=== PATIENT | male | born 1985 | race Two or more races ===

== ENCOUNTER 2022-12-13 09:07 | Emergency (ER) | payer OTHER ==
[2022-12-13 09:40] VITALS: BMI 22.1
[2022-12-13] MEDS ORDERED: ACETAMINOPHEN 325 MG TABLET (FP) PO ONE (10:36)
[2022-12-13] MEDS ORDERED: ACETAMINOPHEN 325 MG TABLET (FP) ONE (10:48)
[2022-12-13 12:51] VITALS: BP 128/75; PULSE 85; RESP 18; TEMP 98.1
== END 2022-12-13 12:46 | disposition home or self-care (01) ==
LOC: JER 09:07
DX: R07.9 Chest pain, unspecified (principal); M25.511 Pain in right shoulder; V49.40XA Driver injured in collision with unspecified motor vehicles in traffic accident, initial encounter
CPT/HCPCS: 71046-TC-FY; 73030-TC-RT-FY; 93005; 93010; 99285-25